=== PATIENT | female | born 1950 | race Two or more races ===

== ENCOUNTER 2016-07-23 07:12 | Emergency (ER) | payer OTHER ==
[2016-07-23 07:28] VITALS: BMI 24.8
--- NOTE | 2016-07-23 07:28 | PDOC ---
History of Present Illness - General History Source: Patient Exam Limitations: No Limitations - History of Present Illness Initial Comments: 07/23/16 07:41 The patient is a 66 year old female, with a significant past medical history of diabetes, hyperlipidemia and hypertension, who presents to the emergency department after over medicating with insulin this morning, roughly 1 hour prior to presentation. She reports that she accidentally 50 units of insulin this morning, instead of her usual 8-10 units. She states that usually when she take above 10 units, it knocks her out. She notes that she had coffee and cheese after taking the insulin. The patient denies chest pain, shortness of breath, headache, dizziness, nausea , vomit and diarrhea. Allergies: None Past surgical history: None reported Social history: Social alcohol use. Former smoker. No drug use reported PMD - Dr. Carlitos Osborne <Levon Hoffman - Last Filed: 07/23/16 07:40> <Ariela Gutierrez - Last Filed: 07/23/16 12:22> - General Stated Complaint: OVER MEDICATE HER SELF Time Seen by Provider: 07/23/16 07:24 Past History <Levon Hoffman - Last Filed: 07/23/16 07:40> - Past Medical History Diabetes: Yes HTN: Yes Hypercholesterolemia: Yes - Psycho/Social/Smoking Cessation Hx Anxiety: No Suicidal Ideation: No Smoking History: Former smoker Have you smoked in the past 12 months: No If you are a former smoker, when did you quit?: 10 yrs Information on smoking cessation initiated: No Hx Alcohol Use: Yes (social) Drug/Substance Use Hx: No Substance Use Type: None <Ariela Gutierrez - Last Filed: 07/23/16 12:22> - Past Medical History Allergies/Adverse Reactions: Allergies Allergy/AdvReac Type Severity Reaction Status Date / Time No Known Allergies Allergy Verified 07/23/16 07:18 Home Medications: Ambulatory Orders Insulin Glargine,Hum.rec.anlog [Toujeo Solostar] 50 unit SQ DAILY 07/23/16 Insulin Lispro [Humalog] 0 unit SQ DAILY 07/23/16 Review of Systems - Review of Systems Able to Perform ROS?: Yes Comments:: 07/23/16 07:41 GENERAL/CONSTITUTIONAL: No fever or chills. No weakness. HEAD, EYES, EARS, NOSE AND THROAT: No change in vision. No ear pain or discharge. No sore throat. CARDIOVASCULAR: No chest pain or shortness of breath RESPIRATORY: No cough, wheezing, or hemoptysis. GASTROINTESTINAL: No nausea, vomiting, diarrhea or constipation. GENITOURINARY: No dysuria, frequency, or change in urination. MUSCULOSKELETAL: No joint or muscle swelling or pain. No neck or back pain. SKIN: No rash NEUROLOGIC: No headache, vertigo, loss of consciousness, or change in strength/ sensation. ENDOCRINE: No increased thirst. No abnormal weight change HEMATOLOGIC/LYMPHATIC: No anemia, easy bleeding, or history of blood clots. ALLERGIC/IMMUNOLOGIC: No hives or skin allergy. <Levon Hoffman - Last Filed: 07/23/16 07:40> *Physical Exam - Vital Signs Last Vital Signs Temp Pulse Resp BP Pulse Ox 99.0 F 95 H 20 189/89 99 07/23/16 07:15 07/23/16 07:15 07/23/16 07:15 07/23/16 07:15 07/23/16 07:15 - Physical Exam Comments: 07/23/16 07:41 GENERAL: Awake, alert, and fully oriented, in no acute distress HEAD: No signs of trauma, normocephalic, atraumatic EYES: PERRLA, EOMI, sclera anicteric, conjunctiva clear ENT: Auricles normal inspection, hearing grossly normal, nares patent, oropharynx clear without exudates. Moist mucosa NECK: Normal ROM, supple, no lymphadenopathy, JVD, or masses LUNGS: No distress, speaks full sentences, clear to auscultation bilaterally HEART: Regular rate and rhythm, normal S1 and S2, no murmurs, rubs or gallops, peripheral pulses normal and equal bilaterally. ABDOMEN: Soft, nontender, normoactive bowel sounds. No guarding, no rebound. No masses EXTREMITIES: Normal inspection, Normal range of motion, no edema. No clubbing or cyanosis. NEUROLOGICAL: Cranial nerves II through XII grossly intact. Normal speech, normal gait, no focal sensorimotor deficits SKIN: Warm, Dry, normal turgor, no rashes or lesions noted. <Levon Hoffman - Last Filed: 07/23/16 07:40> - Vital Signs Last Vital Signs Temp Pulse Resp BP Pulse Ox 99.0 F 95 H 20 189/89 99 07/23/16 07:15 07/23/16 07:15 07/23/16 07:15 07/23/16 07:15 07/23/16 07:15 <Ariela Gutierrez - Last Filed: 07/23/16 12:22> ED Treatment Course - LABORATORY CBC & Chemistry Diagram: 07/23/16 07:37 07/23/16 07:37 <Ariela Gutierrez - Last Filed: 07/23/16 12:22> Medical Decision Making - Medical Decision Making 07/23/16 12:20 Multiple reassessments in the ED. Patient improved with PO intake, D10 drip. She overdosed on humalog, which is short-acting, lasts for 2-4 hours. Drip was held for an hour, repeat FS wnl. Patient counseled to check her fingersticks this afternoon to be sure she does not drop below 80. She has been tolerating PO in ED without problems. Will not take her insulin this evening unless it rises again. <Ariela Gutierrez - Last Filed: 07/23/16 12:22> *DC/Admit/Observation/Transfer - Attestations Scribe Attestion: 07/23/16 07:41 Documentation prepared by Levon Hoffman, acting as medical authorization specialist for Ariela Gutierrez MD <Levon Hoffman - Last Filed: 07/23/16 07:40> - Discharge Dispostion Admit: No <Ariela Gutierrez - Last Filed: 07/23/16 12:22> Diagnosis at time of Disposition: Insulin overdose Qualifiers: Encounter type: initial encounter Injury intent: accidental or unintentional Qualified Code(s): T38.3X1A - Poisoning by insulin and oral hypoglycemic [ antidiabetic] drugs, accidental (unintentional), initial encounter - Discharge Dispostion Disposition: HOME Condition at time of disposition: Stable - Referrals Referrals: Carlitos Osborne MD [Primary Care Provider] - - Patient Instructions Printed Discharge Instructions: DI for Hypoglycemia
[2016-07-23] MEDS ORDERED: DEXTROSE 50%-WATER 50 ML VIAL IVPUSH ONE (07:31)
[2016-07-23] MEDS ORDERED: DEXTROSE 50%-WATER 50 ML DISP.SYRIN ONE (07:40)
[2016-07-23] MEDS ORDERED: DEXTROSE 10%-WATER - 1,000 ML IV SCH (07:45)
[2016-07-23 08:10] LABS: BASOPHIL 1.1 % (0-2.0); EOSINOPHIL 5.4 % (0-4.5); MCH 26.4 pg (25.7-33.7); MCHC 32.6 g/dl (32.0-36.0); MEAN CELL VOLUME 80.8 fl (80-96); MEAN PLT VOLUME 9.2 fl (7.5-11.1); NEUTROPHILS 43.8 % (42.8-82.8); PLATELET COUNT 291 K/MM3 (134-434); RDW 14.2 % (11.6-15.6)
[2016-07-23 08:47] LABS: ALBUMIN 4.4 g/dl (3.4-5.0); ANION GAP 12 (8-16); CALCIUM 10.2 mg/dL (8.5-10.1); CO2 29 mmol/L (21-32); CREATININE 0.7 mg/dL (0.55-1.02); SGOT/AST 23 U/L (15-37); SGPT/ALT 31 U/L (12-78)
[2016-07-23 08:49] LABS: ALK PHOS 165 U/L (45-117); BILIRUBIN,TOTAL 0.5 mg/dL (0.2-1.0); TOT PROT 7.6 g/dl (6.4-8.2)
[2016-07-23 08:58] LABS: GLUCOSE,RANDOM 29 mg/dL (74-106)
[2016-07-23 12:24] VITALS: BP 155/90; PULSE 81; TEMP 98
== END 2016-07-23 12:25 | disposition home or self-care (01) ==
LOC: JER 07:12
PROC: 3E033GC Introduction of Other Therapeutic Substance into Peripheral Vein, Percutaneous Approach (ICD-10-PCS; principal; 2016-07-23)
DX: T38.3X1A Poisoning by insulin and oral hypoglycemic [antidiabetic] drugs, accidental (unintentional), initial encounter (principal); E11.9 Type 2 diabetes mellitus without complications; Z79.4 Long term (current) use of insulin; I10 Essential (primary) hypertension; E78.5 Hyperlipidemia, unspecified
CPT/HCPCS: 36415; 80053; 85025; 96365; 96366; 99284-25

== ENCOUNTER 2016-11-24 05:22 | Day surgery (SDC) | payer OTHER ==
[2016-11-09 13:30] VITALS: BMI 26.6
[2016-11-24] MEDS ORDERED: LIDOCAINE HCL 1%, 10 MG/ML (20ML VIAL) ONE (08:07)
[2016-11-24] MEDS ORDERED: BUPIVACAINE HCL/PF 0.5% (5MG/ML) 10 ML VIAL ONE (08:07)
[2016-11-24 08:22] LABS: URINE APPEARANCE CLEAR; URINE BILIRUBIN NEGATIVE (NEGATIVE); URINE BLOOD NEGATIVE (NEGATIVE); URINE COLOR YELLOW; URINE GLUCOSE (UA) 1+ (NEGATIVE); URINE KETONE TRACE (NEGATIVE); URINE NITRITE NEGATIVE (NEGATIVE); URINE PROTEIN NEGATIVE (NEGATIVE); URINE UROBILINOGEN NEGATIVE mg/dL (0.2-1.0)
[2016-11-24 08:25] LABS: URINE LEUK ESTERASE 1+ (NEGATIVE)
[2016-11-24 08:26] LABS: URINE MUCUS RARE; URINE RBC 2 /hpf (0-3); URINE WBC 6 /hpf (3-5)
--- NOTE | 2016-11-24 09:22 | HP ---
Satellite [facility] - Chief Complaint Chief Complaint: right hand pain/numbness - Past Medical History Allergies/Adverse Reactions: Allergies Allergy/AdvReac Type Severity Reaction Status Date / Time No Known Allergies Allergy Verified 07/23/16 07:18 - Current Medications Current Medications: Home Medications Medication Instructions Recorded Insulin Glargine,Hum.rec.anlog 50 unit SQ DAILY 07/23/16 [Toujeo Solostar] Insulin Lispro [Humalog] 0 unit SQ ASDIR 07/23/16 Hydrocodone/Acetaminophen [[place] 1 each PO Q6H PRN #40 tablet MDD 4 11/24/16 5-325 Tablet] [facility] Physical Exam - Physical Examination Vital Signs: Vital Signs Period Temp Pulse Resp BP Sys/Cullen Pulse Ox Last 24 Hr 98.0 F-98.0 F 79-79 16-16 145-145/80-80 96 General Appearance: Well Nourished, Well Developed, Alert & Oriented x3 ENT: Clear Lung: Normal air movement Heart: Regular rate & rhythm Extremities: Other (right hand- + tinels, + phalens emg + cts) Neurological: Intact, Alert, Oriented Satellite Impression/Plan - Impression/Plan Impression: right cts Operative Procedure: right ctr Date to be Performed: 11/24/16
[2016-11-24] MEDS ORDERED: ONDANSETRON 4 MG/2 ML VIAL IVPUSH PRN (09:26)
[2016-11-24] MEDS ORDERED: oxyCODONE HCL 5 MG TABLET PO PRN (09:26)
[2016-11-24] MEDS ORDERED: LACTATED RINGERS SOLUTION 1,000 ML IV SCH (09:30)
[2016-11-24] MEDS ORDERED: MIDAZOLAM HCL 2 MG/2 ML SINGLE DOSE VIAL ONE (09:54)
[2016-11-24] MEDS ORDERED: ceFAZolin SODIUM 1 GM VIAL ONE (09:55)
[2016-11-24] MEDS ORDERED: LIDOCAINE HCL/PF 2% SDV 5ML VIAL ONE (09:56)
[2016-11-24] MEDS ORDERED: BUPIVACAINE HCL/PF 0.5% (5MG/ML) 10 ML VIAL IJ ONE ×2 (10:19)
[2016-11-24] MEDS ORDERED: LIDOCAINE HCL 1%, 10 MG/ML (20ML VIAL) IJ ONE ×2 (10:19)
--- NOTE | 2016-11-24 10:49 | OP ---
Operative Note - Note: Operative Date: 11/24/16 Pre-Operative Diagnosis: right CTS Operation: right CTR Post-Operative Diagnosis: Same as Pre-op Surgeon: Kaden Lange Anesthesiologist/WARP TYING MACHINE TENDER: Shahram Putnam Anesthesia: General, Local Specimens Removed: tenosynovium Estimated Blood Loss (mls): 0 Blood Volume Replaced (mls): 0 Fluid Volume Replaced (mls): 500 Operative Report Dictated: Yes
[2016-11-24 11:16] VITALS: TEMP 98
[2016-11-24 12:17] VITALS: BP 133/86; PULSE 77
--- NOTE | 2016-11-25 15:21 | PATH ---
Surgical Pathology Report Patient Name: DONNIE CORTEZ [facility]. Rec. #: [id number] /Age/Gender: 1950 (Age: 66) / F Account: [id number] Location: [facility] SURGICAL Taken: 11/24/2016 Received: 11/24/2016 Reported: 11/25/2016 Physicians: Kaden Lange M.D. Specimen(s) Received TENOSYNOVIUM RIGHT WRIST Clinical History Right carpal tunnel syndrome Final Diagnosis SOFT TISSUE, RIGHT WRIST, TENOSYNOVIUM, CARPAL TUNNEL RELEASE: BENIGN TENOSYNOVIAL FIBROCONNECTIVE TISSUE WITH FOCAL MYXOID DEGENERATION. Electronically Signed Sanjiv Navarro M.D. Gross Description Received in formalin labelled "tenosynovium right wrist" is a 2.0 x 2.0 x 0.3 cm aggregate of sanchez tissue. Totally submitted in one cassette. [facility]/11/24/2016 [facility]/11/24/2016
--- NOTE | 2016-11-26 07:24 | SPEC ---
DATE OF OPERATION: 11/24/2016 PREOPERATIVE DIAGNOSIS: Right carpal tunnel syndrome. POSTOPERATIVE DIAGNOSIS: Right carpal tunnel syndrome. PROCEDURE: Right carpal tunnel release and tenosynovectomy. SURGEON: Abdirizak Aguirre MD BALLET DANCER: None. HARDBOARD COATING MACHINE OPERATOR: , PAZ. ANESTHESIA: MAC anesthesia with local injection of 12 mL of 0.5% Marcaine and 1% lidocaine mix. DRAINS: None. COMPLICATIONS: None. SPECIMEN: Tenosynovium, right wrist. BLOOD LOSS: None. BLOOD GIVEN: None. FLUID REPLACEMENT: Plasma-Lyte, 500 mL. INDICATIONS: This patient is a 66-year-old female with a preoperative diagnosis of recurrent severe right carpal tunnel syndrome. After understanding the potential risks, complications, alternatives and benefits of surgery versus nonsurgical treatment, the patient elected to undergo this procedure. DESCRIPTION OF PROCEDURE: The patient was brought to the operating room, peripheral IV placed, and intravenous sedation was given. One gram of intravenous Ancef was given. MAC anesthesia was induced. A tourniquet was applied to the right upper arm and the right upper extremity was prepped and draped in sterile fashion. The entire case was done under 3.8 loupe magnification. A marking pen was utilized to natalie out a longitudinal incision in an already existing skin crease. Twenty mL of 0.5% Marcaine mixed with 1% lidocaine was injected in and around the surgical incision. The right upper extremity was elevated, exsanguinated with an Esmarch bandage, and the tourniquet inflated to 250 mmHg. A No. 15 scalpel blade was utilized to cut down through the skin. Subcutaneous hemostasis was achieved with the bipolar cautery. Dissection was done through the superficial palmar fascia. Self-retaining retractors were placed into the wound. Under direct visualization, the transverse carpal ligament was transected with a No. 15 scalpel blade, exposing the median nerve and the contents of the carpal tunnel. The distal and proximal extents of the release were completed with a Littler scissor and checked with irrigation and my small finger. They were seen to be complete. Limited dissection was done on the radial side of the median nerve and more extensive dissection was done on the ulnar side of the median nerve. The patients nerve was seen to be quite compressed by epineurium and therefore a limited epineurotomy was performed. A Ragnell retractor was used to gently retract the median nerve in a radial direction. The patient had a lot of tenosynovitis and therefore a tenosynovectomy was performed off all 9 flexor tendons. This was passed off the field as tenosynovium, right wrist. The floor of the carpal tunnel was checked. There were no abnormal masses or ganglion cysts. The area was copiously irrigated and washed out and closure begun. Undyed 4-0 Vicryl was used to close the deep dermal layer. Final skin reapproximation was done with horizontal mattress 4-0 nylon sutures. The area was then washed and dried, covered with Xeroform, 4 x 4's, fluffs between the fingers, Webril, and a 4-inch plaster roll was utilized to make a volar splint, which was then wrapped with Stewart and Coban. The tourniquet was taken down after a total tourniquet time of 16 minutes. There were no complications during the case. The patient tolerated the procedure quite well and was brought to the ambulatory recovery room in stable condition. ABDIRIZAK AGUIRRE M.D. [id number]
== END 2016-11-24 12:19 | disposition home or self-care (01) ==
LOC: JASU-SURG 05:22
PROVIDERS: ATTEND Orthopaedic Surgery
PROC: 01N50ZZ Release Median Nerve, Open Approach (ICD-10-PCS; principal; 2016-11-24 09:30)
DX: G56.01 Carpal tunnel syndrome, right upper limb (principal)
CPT/HCPCS: 81003; 81015; 88304-TC; 94760

== ENCOUNTER 2017-06-09 15:08 | Emergency (ER) | payer OTHER ==
[2017-06-09 15:21] VITALS: BP 149/87; PULSE 77; TEMP 97.8; BMI 24.8
--- NOTE | 2017-06-09 15:23 | PDOC ---
Rapid Medical Evaluation Chief Complaint: Shortness of Breath Time Seen by Provider: 06/09/17 15:21 Medical Evaluation: Allergies Allergy/AdvReac Type Severity Reaction Status Date / Time No Known Allergies Allergy Verified 06/09/17 15:16 Vital Signs Temp Pulse Resp BP Pulse Ox 97.8 F 77 18 149/87 100 06/09/17 15:16 06/09/17 15:16 06/09/17 15:16 06/09/17 15:16 06/09/17 15:16 I have performed a brief in-person evaluation of this patient. The patient presents with a chief complaint of: chest tightness and SOB one episode last week and again today. The patient is attributing the symptoms to a new diabetes medication she is taking - Triceeba (started about 1 month ago). Pertinent physical exam findings: none I have ordered the following: EKG, labs, UA The patient will proceed to the ED for further evaluation. Discharge Disposition - Referrals Referrals: Carlitos Osborne MD [Primary Care Provider] - - Patient Instructions - Post Discharge Activity
[2017-06-09 16:02] LABS: BASO % 0.6 % (0-2.0); EOS % 1.5 % (0-4.5); HEMATOCRIT 35.3 % (32.4-45.2); HEMOGLOBIN 11.5 GM/dL (10.7-15.3); LYMPH % 25.5 % (8-40); MCHC 32.6 g/dl (32.0-36.0); MEAN CELL VOLUME 79.8 fl (80-96); MEAN PLT VOLUME 9.3 fl (7.5-11.1); MONO % 8.3 % (3.8-10.2); NEUT % 64.1 % (42.8-82.8); PLATELET COUNT 273 K/MM3 (134-434); RBC 4.42 M/mm3 (3.60-5.2); RDW 14.2 % (11.6-15.6); WHITE BLOOD COUNT 8.7 K/mm3 (4.0-10.0)
[2017-06-09 16:16] LABS: URINE APPEARANCE CLEAR; URINE BILIRUBIN NEGATIVE (NEGATIVE); URINE BLOOD NEGATIVE (NEGATIVE); URINE COLOR YELLOW; URINE GLUCOSE (UA) NEGATIVE (NEGATIVE); URINE KETONE TRACE (NEGATIVE); URINE LEUK ESTERASE NEGATIVE (NEGATIVE); URINE NITRITE NEGATIVE (NEGATIVE); URINE PROTEIN NEGATIVE (NEGATIVE)
[2017-06-09 16:57] LABS: CHLORIDE 103 mmol/L (98-107); POTASSIUM 3.8 mmol/L (3.5-5.1); SODIUM 140 mmol/L (136-145)
[2017-06-09 17:08] LABS: ALK PHOS 119 U/L (45-117); ANION GAP 11 (8-16); BILIRUBIN,TOTAL 0.4 mg/dL (0.2-1.0); BLOOD UREA NITROGEN 24 mg/dL (7-18); CALCIUM 8.5 mg/dL (8.5-10.1); CO2 26 mmol/L (21-32); CREATININE 0.7 mg/dL (0.55-1.02); GLUCOSE,RANDOM 102 mg/dL (74-106); SGOT/AST 22 U/L (15-37); SGPT/ALT 31 U/L (12-78); TOT PROT 6.6 g/dl (6.4-8.2)
--- NOTE | 2017-06-09 17:13 | PDOC ---
History of Present Illness - General History Source: Patient Exam Limitations: No Limitations - History of Present Illness Initial Comments: 06/09/17 19:04 Patient is a 66-year-old female past medical history of insulin-dependent diabetes, who presents emergency department today with 2 weeks of chest tightness. Patient states that she thinks she had the flu approximately 2 weeks ago and has since recovered. Since then she has a tight cough and chest tightness. She is tried using Vicks VapoRub with some relief of her cough. States that she feels short of breath at rest as well as walking. Denies fevers , chills, earache, sore throat, wheezing, palpitations, chest pain, nausea, vomiting, diarrhea and urinary symptoms. <Lu Olvera - Last Filed: 06/10/17 12:04> <Ariela Gutierrez - Last Filed: 06/12/17 14:14> - General Chief Complaint: Shortness of Breath Stated Complaint: CHEST THIGHTNESS Time Seen by Provider: 06/09/17 15:21 Past History - Travel Traveled outside of the country in the last 30 days: No Close contact w/someone who was outside of country & ill: No - Past Medical History Anemia: No Asthma: No Cancer: No Cardiac Disorders: No CVA: No COPD: No CHF: No DVT: No Dementia: No Diabetes: Yes GI Disorders: No Disorders: No HTN: Yes Hypercholesterolemia: Yes Liver Disease: No Seizures: No Thyroid Disease: No - Surgical History Abdominal Surgery: No Appendectomy: No Cardiac Surgery: No Cholecystectomy: No Lung Surgery: No Neurologic Surgery: No - Suicide/Smoking/Psychosocial Hx Smoking History: Former smoker Have you smoked in the past 12 months: No If you are a former smoker, when did you quit?: 10 yrs Information on smoking cessation initiated: No Hx Alcohol Use: Yes (social) Drug/Substance Use Hx: No Substance Use Type: None Hx Substance Use Treatment: No <Lu Olvera - Last Filed: 06/10/17 12:04> <Ariela Gutierrez - Last Filed: 06/12/17 14:14> - Past Medical History Allergies/Adverse Reactions: Allergies Allergy/AdvReac Type Severity Reaction Status Date / Time No Known Allergies Allergy Verified 06/09/17 15:16 Home Medications: Ambulatory Orders Insulin Glargine,Hum.rec.anlog [Toujeo Solostar] 50 unit SQ DAILY 07/23/16 Insulin Lispro [Humalog] 0 unit SQ ASDIR 07/23/16 Hydrocodone/Acetaminophen [[place] 5-325 Tablet] 1 each PO Q6H PRN #40 tablet MDD 4 11/24/16 Albuterol Sulfate Inhaler - [Ventolin HFA Inhaler -] 1 - 2 inh PO QID PRN #1 inhaler 06/09/17 Azithromycin [Zithromax 250mg Tablets -] 250 mg PO UTDICT #6 tab 06/09/17 Methylprednisolone [Medrol Dose Mark] 4 mg PO ASDIR #21 tablet 06/09/17 Review of Systems - Review of Systems Able to Perform ROS?: Yes Comments:: 06/09/17 19:05 CONSTITUTIONAL: Absent: fever, chills, diaphoresis, generalized weakness, malaise, loss of appetite HEENT: Absent: rhinorrhea, nasal congestion, throat pain, throat swelling, difficulty swallowing, mouth swelling, ear pain, eye pain, visual Changes CARDIOVASCULAR: Absent: chest pain, loss of consciousness, palpitations, irregular heart rate, peripheral edema RESPIRATORY: Present: chest tightness, cough, shortness of breath Absent: dyspnea with exertion, orthopnea, wheezing, stridor, hemoptysis GASTROINTESTINAL: Absent: abdominal pain, abdominal distension, nausea, vomiting, diarrhea, constipation, melena, hematochezia GENITOURINARY: Absent: dysuria, frequency, urgency, hesitancy, hematuria, flank pain, genital pain MUSCULOSKELETAL: Absent: myalgia, arthralgia, joint swelling SKIN: Absent: rash, itching, pallor HEMATOLOGIC/IMMUNOLOGIC: Absent: easy bleeding, easy bruising, lymphadenopathy, frequent infections ENDOCRINE: Absent: unexplained weight gain, unexplained weight loss, heat intolerance, cold intolerance NEUROLOGIC: Absent: headache, focal weakness or paresthesias, dizziness, unsteady gait, seizure, mental status changes, bladder or bowel incontinence PSYCHIATRIC: Absent: anxiety, depression, suicidal or homicidal ideation, hallucinations. Is the patient limited Divehi proficient: No <Lu Olvera - Last Filed: 06/10/17 12:04> *Physical Exam - Vital Signs Last Vital Signs Temp Pulse Resp BP Pulse Ox 97.8 F 77 18 149/87 98 06/09/17 15:16 06/09/17 15:16 06/09/17 15:16 06/09/17 15:16 06/09/17 16:55 - Physical Exam Comments: 06/09/17 19:06 GENERAL: Well developed, well nourished. Awake and alert. No acute distress. HEENT: Normocephalic, atraumatic. PERRLA, EOMI. No conjunctival pallor. Sclera are non- icteric. Moist mucous membranes. Oropharynx is clear. NECK: Supple. Full ROM. No JVD. Carotid pulses 2+ and symmetric, without bruits. No thyromegaly. No lymphadenopathy. CARDIOVASCULAR: Regular rate and rhythm. No murmurs, rubs, or gallops. Distal pulses are 2+ and symmetric. PULMONARY: No evidence of respiratory distress. Lungs with course sounds b/l. Fair aeration to the bases. No wheezing, rales or rhonchi. ABDOMINAL: Soft. Non-tender. Non-distended. No rebound or guarding. No organomegaly. Normoactive bowel sounds. MUSCULOSKELETAL Normal range of motion at all joints. No bony deformities or tenderness. No CVA tenderness. EXTREMITIES: No cyanosis. No clubbing. No edema. No calf tenderness. SKIN: Warm and dry. Normal capillary refill. No rashes. No jaundice. NEUROLOGICAL: Alert, awake, appropriate. Cranial nerves 2-12 intact. No deficits to light touch and temperature in face, upper extremities and lower extremities. No motor deficits in the in face, upper extremities and lower extremities. Normoreflexic in the upper and lower extremities. Normal speech. Toes are down- going bilaterally. Gait is normal without ataxia. PSYCHIATRIC: Cooperative. Good eye contact. Appropriate mood and affect. <Lu Olvera - Last Filed: 06/10/17 12:04> - Vital Signs Last Vital Signs Temp Pulse Resp BP Pulse Ox 97.8 F 77 18 149/87 98 06/09/17 15:16 06/09/17 15:16 06/09/17 15:16 06/09/17 15:16 06/09/17 16:55 <Ariela Gutierrez - Last Filed: 06/12/17 14:14> Heart Score/ECG Review - History History: Slightly suspicious - Electrocardiogram EKG: Normal - Age Age: 45-65 - Risk Factors Risk Factors Heart Score: Yes Hx Diabetes Based on the list above the patient has:: 1-2 risk factors - Troponin Troponin: </= normal limit - Score Heart Score - Total: 2 <Lu Olvera - Last Filed: 06/10/17 12:04> ED Treatment Course - LABORATORY CBC & Chemistry Diagram: 06/09/17 15:41 06/09/17 15:41 - ADDITIONAL ORDERS Additional order review: Laboratory Results 06/09/17 06/09/17 15:47 15:41 Sodium 140 Potassium 3.8 Chloride 103 Carbon Dioxide 26 Anion Gap 11 BUN 24 H Creatinine 0.7 Creat Clearance w eGFR > 60 Random Glucose 102 Calcium 8.5 Total Bilirubin 0.4 D AST 22 ALT 31 Alkaline Phosphatase 119 H Creatine Kinase 165 Troponin I < 0.02 Total Protein 6.6 Albumin 4.0 Urine Color Yellow Urine Appearance Clear Urine pH 5.0 Ur Specific [place] 1.027 Urine Protein Negative Urine Glucose (UA) Negative Urine Ketones Trace H Urine Blood Negative Urine Nitrite Negative Urine Bilirubin Negative Urine Urobilinogen 2.0 H Ur Leukocyte Esterase Negative 06/09/17 15:41 RBC 4.42 MCV 79.8 L MCHC 32.6 RDW 14.2 MPV 9.3 Neutrophils % 64.1 D Lymphocytes % 25.5 D Monocytes % 8.3 Eosinophils % 1.5 Basophils % 0.6 <Lu Olvera - Last Filed: 06/10/17 12:04> - LABORATORY CBC & Chemistry Diagram: 06/09/17 15:41 06/09/17 15:41 - ADDITIONAL ORDERS Additional order review: 06/09/17 15:41 RBC 4.42 MCV 79.8 L MCHC 32.6 RDW 14.2 MPV 9.3 Neutrophils % 64.1 D Lymphocytes % 25.5 D Monocytes % 8.3 Eosinophils % 1.5 Basophils % 0.6 - Medications Given in the ED: ED Medications Discontinued Medications Generic Name Dose Route Start Last Admin Trade Name Freq PRN Reason Stop Dose Admin Albuterol/Ipratropium 1 amp 06/09/17 17:16 06/09/17 17:38 Duoneb - NEB 06/09/17 17:17 1 amp ONCE ONE Administration Sodium Chloride 1,000 mls @ 1,000 mls/hr 06/09/17 17:14 06/09/17 17:38 Normal Saline - IV 06/09/17 18:13 1,000 mls/hr ASDIR STA Administration Prednisone 60 mg 06/09/17 17:15 06/09/17 17:38 Deltasone - PO 06/09/17 17:16 60 mg ONCE ONE Administration <Ariela Gutierrez - Last Filed: 06/12/17 14:14> Medical Decision Making - Medical Decision Making 06/09/17 17:54 Patient is a 66-year-old female past medical history of insulin-dependent diabetes who presents emergency department today with 2 weeks of chest tightness and shortness of breath. In the setting of the flu, I suspect that this is a bronchitis at this time however will rule out ACS. We'll also rule out pneumonia at this time 1. basic labs ordered and RME 2.chest x-ray, EKG 3.DuoNeb, steroids 4.reevaluate 06/09/17 19:06 Wet read of chest x-ray shows increased interstitial markings consistent with bronchitis. No pneumonia or pleural effusion present. Patient feels some relief of her chest tightness with DuoNeb. Will order another DuoNeb at this time. Lab work is unremarkable, troponin is negative, no leukocytosis. EKG:Rate 70 NSR, Normal axis, Qtc 447. No acute ST-T wave changes. Normal EKG Sign out given to Zehra Kirby AMERICAN INDIAN STUDIES PROFESSOR patient is pending disposition given relief of symptoms. Case discussed in detail with oncoming AMERICAN INDIAN STUDIES PROFESSOR including history, physical exam and ancillary studies. Oncoming AMERICAN INDIAN STUDIES PROFESSOR has assumed care for the patient and will complete the evaluation and treatment. <Lu Olvera - Last Filed: 06/10/17 12:04> *DC/Admit/Observation/Transfer <Lu Olvera - Last Filed: 06/10/17 12:04> - Attestations Physician Attestion: I reviewed the case with the mid-level practitioner and agree with the mid- level practitioner's assessment, diagnosis and disposition. <Ariela Gutierrez - Last Filed: 06/12/17 14:14> Diagnosis at time of Disposition: Bronchitis - Discharge Dispostion Disposition: HOME Condition at time of disposition: Stable - Prescriptions Prescriptions: Albuterol Sulfate Inhaler - [Ventolin HFA Inhaler -] 1 - 2 inh PO QID PRN #1 inhaler PRN Reason: Cough and/or Wheezing Azithromycin [Zithromax 250mg Tablets -] 250 mg PO UTDICT #6 tab Methylprednisolone [Medrol Dose Mark] 4 mg PO ASDIR #21 tablet - Referrals Referrals: Carlitos Osborne MD [Primary Care Provider] - Olegario Hunter MD [Staff Physician] - - Patient Instructions Printed Discharge Instructions: DI for Acute Bronchitis Additional Instructions: Please use medications as prescribed. Please get plenty of rest and drink lots of fluids to help break up any secretions. Follow up with your primary care doctor by the end of next week. If you develop any fever or chills unrelieved by Motrin or Tylenol, persistent vomiting or diarrhea, shortness of breath unrelieved by your inhaler, or any new or worsening symptoms, please return to the ER. - Post Discharge Activity
[2017-06-09] MEDS ORDERED: SODIUM CHLORIDE 1,000 ML IV STA (17:14)
[2017-06-09] MEDS ORDERED: predniSONE 20 MG TABLET (UD) PO ONE (17:15)
[2017-06-09] MEDS ORDERED: ALBUTEROL SO4 2.5/IPRATROPIUM 0.5 INH SOL 3 ML VIAL.NEB. NEB ONE ×3 (17:16→19:24)
[2017-06-09] MEDS ORDERED: predniSONE 20 MG TABLET (UD) ONE (17:26)
--- NOTE | 2017-06-09 19:56 | PDOC ---
*Physical Exam - Vital Signs Last Vital Signs Temp Pulse Resp BP Pulse Ox 97.8 F 77 18 149/87 98 06/09/17 15:16 06/09/17 15:16 06/09/17 15:16 06/09/17 15:16 06/09/17 16:55 - Physical Exam Comments: 06/09/17 19:49 Sign-out received from outgoing ER provider Wade. Pt interviewed and examined. Ancillary studies reviewed. Patient received second Duoneb. Reassessed patient; at this time she states she is feeling much better and is ready to go home. Lungs are CTAB, patient is well appearing. Will dc to home with antibiotics and short course of steroids. Advised patient to take medication as prescribed and follow up with PCP by the end of the next week. Advised patient of signs and symptoms for return to ED. Patient verbalized understanding and agrees to plan. ED Treatment Course - LABORATORY CBC & Chemistry Diagram: 06/09/17 15:41 06/09/17 15:41 - ADDITIONAL ORDERS Additional order review: Laboratory Results 06/09/17 06/09/17 15:47 15:41 Sodium 140 Potassium 3.8 Chloride 103 Carbon Dioxide 26 Anion Gap 11 BUN 24 H Creatinine 0.7 Creat Clearance w eGFR > 60 Random Glucose 102 Calcium 8.5 Total Bilirubin 0.4 D AST 22 ALT 31 Alkaline Phosphatase 119 H Creatine Kinase 165 Creatine Kinase Index 1.8 CK-MB (CK-2) 3.075 Troponin I < 0.02 Total Protein 6.6 Albumin 4.0 Urine Color Yellow Urine Appearance Clear Urine pH 5.0 Ur Specific Bowman 1.027 Urine Protein Negative Urine Glucose (UA) Negative Urine Ketones Trace H Urine Blood Negative Urine Nitrite Negative Urine Bilirubin Negative Urine Urobilinogen 2.0 H Ur Leukocyte Esterase Negative 06/09/17 15:41 RBC 4.42 MCV 79.8 L MCHC 32.6 RDW 14.2 MPV 9.3 Neutrophils % 64.1 D Lymphocytes % 25.5 D Monocytes % 8.3 Eosinophils % 1.5 Basophils % 0.6 - Medications Given in the ED: ED Medications Discontinued Medications Generic Name Dose Route Start Last Admin Trade Name Freq PRN Reason Stop Dose Admin Albuterol/Ipratropium 1 amp 06/09/17 17:16 06/09/17 17:38 Duoneb - NEB 06/09/17 17:17 1 amp ONCE ONE Administration Sodium Chloride 1,000 mls @ 1,000 mls/hr 06/09/17 17:14 06/09/17 17:38 Normal Saline - IV 06/09/17 18:13 1,000 mls/hr ASDIR STA Administration Prednisone 60 mg 06/09/17 17:15 06/09/17 17:38 Deltasone - PO 06/09/17 17:16 60 mg ONCE ONE Administration *DC/Admit/Observation/Transfer Diagnosis at time of Disposition: Bronchitis - Discharge Dispostion Disposition: HOME Condition at time of disposition: Stable Admit: No - Prescriptions Prescriptions: Albuterol Sulfate Inhaler - [Ventolin HFA Inhaler -] 1 - 2 inh PO QID PRN #1 inhaler PRN Reason: Cough and/or Wheezing Azithromycin [Zithromax 250mg Tablets -] 250 mg PO UTDICT #6 tab Methylprednisolone [Medrol Dose Mark] 4 mg PO ASDIR #21 tablet - Referrals Referrals: Olegario Hunter MD [Staff Physician] - Carlitos Osborne MD [Primary Care Provider] - - Patient Instructions Printed Discharge Instructions: DI for Acute Bronchitis Additional Instructions: Please use medications as prescribed. Please get plenty of rest and drink lots of fluids to help break up any secretions. Follow up with your primary care doctor by the end of next week. If you develop any fever or chills unrelieved by Motrin or Tylenol, persistent vomiting or diarrhea, shortness of breath unrelieved by your inhaler, or any new or worsening symptoms, please return to the ER. - Post Discharge Activity
--- NOTE | 2017-06-10 09:32 | EKG ---
Test Reason : Blood Pressure : / mmHG Vent. Rate : 070 BPM Atrial Rate : 070 BPM P-R Int : 136 ms QRS Dur : 086 ms QT Int : 414 ms P-R-T Axes : 049 044 037 degrees QTc Int : 447 ms NORMAL SINUS RHYTHM MINIMAL VOLTAGE CRITERIA FOR LVH, MAY BE NORMAL VARIANT BORDERLINE ECG WHEN COMPARED WITH ECG OF 09-JUN-2017 15:18, NO SIGNIFICANT CHANGE WAS FOUND Confirmed by JUAN F GALLOWAY, ZOË ([id number]) on 06/10/2017 9:31:49 AM Referred By: Confirmed By:ZOË ROGEL MD
--- NOTE | 2017-06-11 08:43 | EKG ---
Test Reason : Blood Pressure : / mmHG Vent. Rate : 074 BPM Atrial Rate : 074 BPM P-R Int : 134 ms QRS Dur : 090 ms QT Int : 384 ms P-R-T Axes : 047 041 044 degrees QTc Int : 426 ms NORMAL SINUS RHYTHM MINIMAL VOLTAGE CRITERIA FOR LVH, MAY BE NORMAL VARIANT BORDERLINE ECG WHEN COMPARED WITH ECG OF 09-NOV-2016 12:57, NO SIGNIFICANT CHANGE WAS FOUND Confirmed by JUAN F GALLOWAY, ZOË ([id number]) on 06/11/2017 8:43:18 AM Referred By: Confirmed By:ZOË ROGEL MD
== END 2017-06-09 20:04 | disposition home or self-care (01) ==
LOC: JER 15:08
PROC: 3E0337Z Introduction of Electrolytic and Water Balance Substance into Peripheral Vein, Percutaneous Approach (ICD-10-PCS; principal; 2017-06-09)
PROC: 3E0F7GC Introduction of Other Therapeutic Substance into Respiratory Tract, Via Natural or Artificial Opening (ICD-10-PCS; 2017-06-09)
DX: J40 Bronchitis, not specified as acute or chronic (principal)
CPT/HCPCS: 36415; 71046-TC-FY; 80053; 81003; 82550; 82553; 84484; 85025; 93005; 93010; 94640; 96360; 99283-25

== ENCOUNTER 2022-02-12 18:32 | Emergency (ER) | payer OTHER ==
[2022-02-12 18:38] VITALS: BP 141/70; PULSE 81; RESP 18; TEMP 97.9; BMI 27.2
[2022-02-12] MEDS ORDERED: SODIUM CHLORIDE 0.9% 1000 ML INFUS.BAG IV ONE (19:03)
[2022-02-12 19:21] LABS: VENOUS BASE EXCESS -3.3 mmol/L (-2-2); VENOUS O2 SATURATION 68.4 % (70-80); VENOUS PCO2 41.7 mmHg (38-52); VENOUS PH 7.344 (7.310-7.410)
[2022-02-12 19:30] LABS: BASO % 0.6 % (0-2.0); EOS % 1.8 % (0-4.5); HEMATOCRIT 33.9 % (32.4-45.2); LYMPH % 27.9 % (8-40); MCH 28.1 pg (25.7-33.7); MCHC 32.4 g/dl (32.0-36.0); MEAN CELL VOLUME 86.9 fl (80-96); MONO % 8.5 % (3.8-10.2); NEUT % 61.2 % (42.8-82.8); PLATELET COUNT 240 10^3/uL (134-434); RBC 3.91 M/mm3 (3.60-5.2); RDW 12.9 % (11.6-15.6); WHITE BLOOD COUNT 7.2 K/mm3 (4.0-10.0)
[2022-02-12 19:44] LABS: CHLORIDE 94 mmol/L (98-107); SODIUM 128 mmol/L (136-145)
[2022-02-12 19:46] LABS: ALBUMIN 4.1 g/dl (3.4-5.0); ANION GAP 11 MMOL/L (8-16); BLOOD UREA NITROGEN 31.2 mg/dL (7-18); CALCIUM 8.9 mg/dL (8.5-10.1); CO2 23 mmol/L (21-32); MAGNESIUM 2.1 mg/dL (1.8-2.4)
[2022-02-12 19:49] LABS: CREATININE 1.5 mg/dL (0.55-1.3); SGPT/ALT 26 U/L (13-61)
[2022-02-12 19:50] LABS: SGOT/AST 21 U/L (15-37)
[2022-02-12 19:51] LABS: BILIRUBIN,TOTAL 0.8 mg/dL (0.2-1); TOT PROT 6.6 g/dl (6.4-8.2)
[2022-02-12 19:52] LABS: ALK PHOS 126 U/L (45-117)
[2022-02-12 20:09] LABS: GLUCOSE,RANDOM 755 mg/dL (74-106)
[2022-02-12] MEDS ORDERED: SODIUM CHLORIDE 0.9% 500 ML INFUS.BAG IV ONE (20:18)
[2022-02-12] MEDS ORDERED: INSULIN REGULAR HUMAN 100 UNITS/ML *VIAL SQ ONE (20:19)
[2022-02-12 21:52] LABS: URINE APPEARANCE CLEAR; URINE BILIRUBIN NEGATIVE (NEGATIVE); URINE COLOR YELLOW; URINE GLUCOSE (UA) 3+ (NEGATIVE); URINE KETONE 1+ (NEGATIVE); URINE LEUK ESTERASE NEGATIVE (NEGATIVE); URINE NITRITE NEGATIVE (NEGATIVE); URINE PROTEIN NEGATIVE (NEGATIVE); URINE UROBILINOGEN 0.2 mg/dL (0.2-1.0)
[2022-02-12 23:10] LABS: CALCIUM 7.9 mg/dL (8.5-10.1)
[2022-02-12 23:11] LABS: ALBUMIN 3.4 g/dl (3.4-5.0)
[2022-02-12 23:14] LABS: CREATININE 1.1 mg/dL (0.55-1.3)
[2022-02-12 23:16] LABS: BILIRUBIN,TOTAL 0.4 mg/dL (0.2-1); TOT PROT 5.6 g/dl (6.4-8.2)
== END 2022-02-13 01:10 | disposition home or self-care (01) ==
LOC: JER 18:32
DX: E13.65 Other specified diabetes mellitus with hyperglycemia (principal)
CPT/HCPCS: 36415; 71045-TC-FY; 80053; 81003; 82010; 82803; 82962; 83735; 84484; 85025; 99285-25

== ENCOUNTER 2022-02-17 14:56 | Inpatient (IN) | payer OTHER ==
[2022-02-17] MEDS ORDERED: SODIUM CHLORIDE 0.9% 1000 ML INFUS.BAG IV ONE (15:17)
[2022-02-17 15:28] LABS: BASO % 0.8 % (0-2.0); HEMATOCRIT 36.2 % (32.4-45.2); HEMOGLOBIN 11.5 GM/dL (10.7-15.3); LYMPH % 8.1 % (8-40); MCH 28.7 pg (25.7-33.7); MCHC 31.8 g/dl (32.0-36.0); MEAN CELL VOLUME 90.2 fl (80-96); MEAN PLT VOLUME 9.8 fl (7.5-11.1); MONO % 2.4 % (3.8-10.2); NEUT % 88.7 % (42.8-82.8); PLATELET COUNT 310 10^3/uL (134-434); RBC 4.01 M/mm3 (3.60-5.2); RDW 13.7 % (11.6-15.6); WHITE BLOOD COUNT 19.9 K/mm3 (4.0-10.0)
[2022-02-17 15:36] LABS: VENOUS BASE EXCESS -22.3 mmol/L (-2-2); VENOUS O2 SATURATION 36.5 % (70-80); VENOUS PCO2 28.4 mmHg (38-52)
[2022-02-17] MEDS ORDERED: LACTATED RINGERS SOLUTION 1,000 ML/1,000 ML INFUS.BAG IV STA ×2 (15:39→16:14)
[2022-02-17 15:40] LABS: VENOUS PH 7.027 (7.310-7.410)
[2022-02-17 15:48] LABS: CHLORIDE 90 mmol/L (98-107); SODIUM 127 mmol/L (136-145)
[2022-02-17 15:50] LABS: CALCIUM 9.5 mg/dL (8.5-10.1); CO2 9 mmol/L (21-32)
[2022-02-17 15:51] LABS: ALBUMIN 4.2 g/dl (3.4-5.0)
[2022-02-17 15:54] LABS: CREATININE 2.1 mg/dL (0.55-1.3); SGOT/AST 21 U/L (15-37); SGPT/ALT 28 U/L (13-61)
[2022-02-17 15:55] LABS: BILIRUBIN,TOTAL 0.5 mg/dL (0.2-1); TOT PROT 7.2 g/dl (6.4-8.2)
[2022-02-17 15:56] LABS: ALK PHOS 144 U/L (45-117); LACTIC ACID 2.2 mmol/L (0.4-2.0)
[2022-02-17 16:29] LABS: ANION GAP 28 MMOL/L (8-16); GLUCOSE,RANDOM 635 mg/dL (74-106)
[2022-02-17] MEDS ORDERED: DEXTROSE 50%-WATER - 25 GM/50 ML VIAL IVPUSH PRN (16:38)
[2022-02-17] MEDS ORDERED: INSULIN REGULAR 100 UNITS in SODIUM CHLORIDE 99 ML IVPB SCH ×2 (16:45→17:30)
[2022-02-17] MEDS ORDERED: CALCIUM GLUCONATE 10% - 1,000 MG/10 ML VIAL IVPUSH ONE (16:53)
[2022-02-17] MEDS ORDERED: INSULIN REGULAR HUMAN 100 UNITS/ML *VIAL* (FOR IVP) IVPUSH ONE (16:59)
[2022-02-17] MEDS ORDERED: INSULIN REGULAR HUMAN 100 UNITS/ML *VIAL ONE (17:01)
[2022-02-17] MEDS ORDERED: CALCIUM GLUC IN NACL, ISO-OSM 1 GM/50 ML BAG IVPB ONE (17:03)
[2022-02-17] MEDS ORDERED: ONDANSETRON 4 MG/2 ML VIAL IVPUSH ONE (17:20)
[2022-02-17] MEDS ORDERED: LACTATED RINGERS SOLUTION 1,000 ML/1,000 ML INFUS.BAG IV ONE (17:22)
[2022-02-17] MEDS ORDERED: SODIUM CHLORIDE 0.45% 1,000 ML IV SCH ×2 (17:30→18:24)
[2022-02-17] MEDS ORDERED: ONDANSETRON 4 MG/2 ML VIAL ONE (18:09)
[2022-02-17] MEDS ORDERED: SODIUM ZIRCONIUM CYCLOSILICATE (LOKELMA) 5 GM PACKET PO ONE (18:28)
[2022-02-17 19:40] LABS: CHOLESTEROL 233 mg/dL (50-200); TRIGLYCERIDES 526 mg/dL (0-150)
[2022-02-17 19:41] LABS: LDL CHOLESTEROL (ONLY SJRH) 102 mg/dL (5-100)
[2022-02-17 19:43] LABS: HDL CHOLESTEROL 36 mg/dL (40-60)
[2022-02-17] MEDS ORDERED: CHLORHEXIDINE GLUCONATE 4% CLEANSER FOR DECOLONIZATION TP SCH (22:00)
[2022-02-17] MEDS: ROSUVASTATIN CA 10 MG TABLET PO SCH (22:09)
[2022-02-17] MEDS: MUPIROCIN 2% TOPICAL OINTMENT FOR DECOLONIZATION NS SCH (22:09)
[2022-02-17 22:10] LABS: CALCIUM 9.4 mg/dL (8.5-10.1)
[2022-02-17] MEDS: HEPARIN NA (PORCINE) 5,000 UNITS/ML 1ML VIAL SQ SCH (22:10)
[2022-02-17 22:11] LABS: BLOOD UREA NITROGEN 40.4 mg/dL (7-18)
[2022-02-17 22:14] LABS: CREATININE 1.6 mg/dL (0.55-1.3)
[2022-02-18] MEDS ORDERED: DEXTROSE 5%-0.45% SALINE 1,000 ML IV SCH (00:15)
[2022-02-18] MEDS: CEFTRIAXONE 1 GM in DEXTROSE 5%-WATER - 50 ML IVPB SCH ×2 (00:33→09:41)
[2022-02-18 01:33] LABS: BLOOD UREA NITROGEN 35.7 mg/dL (7-18); CALCIUM 9.2 mg/dL (8.5-10.1)
[2022-02-18 01:36] LABS: CREATININE 1.4 mg/dL (0.55-1.3)
[2022-02-18 02:04] LABS: URINE APPEARANCE CLEAR; URINE BILIRUBIN NEGATIVE (NEGATIVE); URINE COLOR YELLOW; URINE GLUCOSE (UA) 2+ (NEGATIVE); URINE KETONE 3+ (NEGATIVE); URINE LEUK ESTERASE NEGATIVE (NEGATIVE); URINE NITRITE NEGATIVE (NEGATIVE); URINE PROTEIN NEGATIVE (NEGATIVE); URINE UROBILINOGEN 0.2 mg/dL (0.2-1.0)
[2022-02-18] MEDS: LEVOTHYROXINE NA 50 MCG TABLET (FP) PO SCH (06:04)
[2022-02-18] MEDS: HEPARIN NA (PORCINE) 5,000 UNITS/ML 1ML VIAL SQ SCH ×3 (06:04→21:04)
[2022-02-18] MEDS ORDERED: ASPIRIN 81 MG CHEWABLE TABLETS PO ONE (09:09)
[2022-02-18] MEDS: MUPIROCIN 2% TOPICAL OINTMENT FOR DECOLONIZATION NS SCH (09:41)
[2022-02-18 10:32] LABS: BLOOD UREA NITROGEN 26.4 mg/dL (7-18)
[2022-02-18 10:36] LABS: CREATININE 1.2 mg/dL (0.55-1.3); PHOSPHOROUS 2.6 mg/dL (2.5-4.9)
[2022-02-18 10:37] LABS: BILIRUBIN,TOTAL 0.4 mg/dL (0.2-1); TOT PROT 5.8 g/dl (6.4-8.2)
[2022-02-18 10:42] LABS: ALBUMIN 3.4 g/dl (3.4-5.0)
[2022-02-18 11:12] LABS: BASO % 0.4 % (0-2.0); HEMATOCRIT 30.2 % (32.4-45.2); HEMOGLOBIN 10.4 GM/dL (10.7-15.3); MCHC 34.3 g/dl (32.0-36.0); MEAN CELL VOLUME 84.6 fl (80-96); MEAN PLT VOLUME 9.6 fl (7.5-11.1); MONO % 10.2 % (3.8-10.2); NEUT % 70.4 % (42.8-82.8); PLATELET COUNT 249 10^3/uL (134-434); RBC 3.57 M/mm3 (3.60-5.2); RDW 13.1 % (11.6-15.6); WHITE BLOOD COUNT 11.5 K/mm3 (4.0-10.0)
[2022-02-18 11:19] LABS: INR 0.94 (0.83-1.09); PROTHROMBIN TIME (PATIENT) 10.8 SEC (9.7-13.0)
[2022-02-18 11:22] LABS: ACTIVATED PTT 26.1 SECONDS (25.2-36.5)
[2022-02-18] MEDS ORDERED: INSULIN (LEVEMIR) 100 UNITS/ML UNITS SQ ONE ×2 (12:25→14:16)
[2022-02-18 14:42] VITALS: BMI 27.4
[2022-02-18 16:55] LABS: BLOOD UREA NITROGEN 27.9 mg/dL (7-18)
[2022-02-18 16:59] LABS: CREATININE 1.1 mg/dL (0.55-1.3)
[2022-02-18] MEDS: INSULIN (NOVOLOG) ASPART 100 UNITS/ML 10ML VIAL SQ SCH (17:39)
[2022-02-18] MEDS: INSULIN SLIDING SCALE (NOVOLOG) 1 VIAL SQ SCH ×2 (17:43→21:05)
[2022-02-18] MEDS: ROSUVASTATIN CA 10 MG TABLET PO SCH (21:03)
[2022-02-18] MEDS ORDERED: INSULIN (LEVEMIR) 100 UNITS/ML UNITS SQ SCH (22:00)
[2022-02-19 06:40] VITALS: TEMP 98.6
[2022-02-19] MEDS: LEVOTHYROXINE NA 50 MCG TABLET (FP) PO SCH (06:52)
[2022-02-19] MEDS: INSULIN SLIDING SCALE (NOVOLOG) 1 VIAL SQ SCH ×2 (06:52→11:11)
[2022-02-19] MEDS: HEPARIN NA (PORCINE) 5,000 UNITS/ML 1ML VIAL SQ SCH (06:53)
[2022-02-19] MEDS ORDERED: INSULIN (LEVEMIR) 100 UNITS/ML UNITS SQ SCH (07:00)
[2022-02-19] MEDS: INSULIN (NOVOLOG) ASPART 100 UNITS/ML 10ML VIAL SQ SCH ×2 (07:42→11:11)
[2022-02-19 08:27] LABS: BASO % 0.7 % (0-2.0); EOS % 7.9 % (0-4.5); LYMPH % 27.7 % (8-40); MCH 28.8 pg (25.7-33.7); MCHC 33.4 g/dl (32.0-36.0); MEAN CELL VOLUME 86.3 fl (80-96); MEAN PLT VOLUME 9.5 fl (7.5-11.1); MONO % 8.1 % (3.8-10.2); NEUT % 55.6 % (42.8-82.8); PLATELET COUNT 221 10^3/uL (134-434); RBC 3.82 M/mm3 (3.60-5.2); RDW 13.3 % (11.6-15.6); WHITE BLOOD COUNT 6.6 K/mm3 (4.0-10.0)
[2022-02-19] MEDS ORDERED: DEXTROSE 50%-WATER - 25 GM/50 ML VIAL IVPUSH PRN (08:35)
[2022-02-19 08:40] LABS: BLOOD UREA NITROGEN 23.6 mg/dL (7-18); CALCIUM 9.3 mg/dL (8.5-10.1); MAGNESIUM 1.8 mg/dL (1.8-2.4)
[2022-02-19 08:43] LABS: PHOSPHOROUS 2.3 mg/dL (2.5-4.9)
[2022-02-19] MEDS ORDERED: CEFTRIAXONE 1 GM in DEXTROSE 5%-WATER - 50 ML IVPB SCH (10:00)
[2022-02-19 13:20] VITALS: BP 136/67; PULSE 78; RESP 18
[2022-02-19] MEDS ORDERED: HEPARIN NA (PORCINE) 5,000 UNITS/ML 1ML VIAL SQ SCH (14:00)
[2022-02-19] MEDS ORDERED: ROSUVASTATIN CA 5 MG TABLET PO SCH (22:00)
[2022-02-20] MEDS ORDERED: LEVOTHYROXINE NA 50 MCG TABLET (FP) PO SCH (07:00)
== END 2022-02-19 15:00 | disposition left against medical advice (07) | DRG 638 ==
LOC: JER 14:56 → JERBED 16:40 → JICU 18:47 → J4W 02-18 21:41
PROVIDERS: ADMIT Internal Medicine; ATTEND Internal Medicine
DX: E11.10 Type 2 diabetes mellitus with ketoacidosis without coma (principal); I24.8 Other forms of acute ischemic heart disease; N17.9 Acute kidney failure, unspecified; Z79.4 Long term (current) use of insulin; E03.9 Hypothyroidism, unspecified; E86.0 Dehydration; E78.5 Hyperlipidemia, unspecified; J43.9 Emphysema, unspecified; E87.5 Hyperkalemia
CPT/HCPCS: 36415; 71045-TC-FY; 76937; 80048; 80053; 80061; 81003; 82010; 82043; 82306; 82570; 82803; 82962; 83036; 83605; 83735; 84100; 84439; 84443; 84481; 84484; 85025; 85610; 85730; 86376; 86800; 87040; 93005; 93010; 99291; C9803-CS; J1644; U0003; U0005

== ENCOUNTER 2023-12-01 14:35 | Emergency (ER) | payer OTHER ==
[2023-12-01 14:43] VITALS: BP 143/82; PULSE 78; RESP 16; TEMP 97.6; BMI 28.5
== END 2023-12-01 16:08 | disposition home or self-care (01) ==
LOC: JERFT 14:35
DX: S61.251A Open bite of left index finger without damage to nail, initial encounter (principal); S90.931A Unspecified superficial injury of right great toe, initial encounter; W55.01XA Bitten by cat, initial encounter
CPT/HCPCS: 99283-25